=== PATIENT | male | born 1985 | race Two or more races ===

== ENCOUNTER → 2024-04-08 | Day surgery (SDC) | payer BC ==
[2024-04-02 14:44] LABS: Urine Bacteria None Seen /hpf (None Seen)
[2024-04-02 15:07] LABS: Urine Blood Negative /uL (Negative); Urine Clarity Clear (Clear); Urine Color Colorless (Yellow); Urine Protein, UAD Negative (Negative); Urine Specific Gravity 1.005 (1.001-1.035); Urine Urobilinogen Normal (Negative); Urine WBC <1 /hpf (0 - 3); Urine pH 6.5 (5.0-9.0)
[2024-04-02 15:10] LABS: Basophils # (auto) 0 10 ^3/uL (0-0.2); Basophils % (auto) 0.8 % (0.0-2.0); Eosinophils # (auto) 0.2 10 ^3/uL (0-0.8); Eosinophils % (auto) 3.1 % (0.0-7.0); Hematocrit 51.1 % (41.0-53.0); Hemoglobin 17.3 g/dL (13.5-17.5); Lymphocytes # (auto) 1.3 10 ^3/uL (0.4-5.4); Lymphocytes % (auto) 24.3 % (10.0-50.0); Mean Corpuscular Hemoglobin 31.2 pg (28.0-32.0); Mean Corpuscular Hgb Conc. 33.9 g/dL (32.0-36.0); Monocytes # (auto) 0.5 10 ^3/uL (0-1.3); Monocytes % (auto) 8.9 % (0.0-12.0); Neutrophils # (auto) 3.3 10 ^3/uL (1.6-8.6); Neutrophils % (auto) 62.9 % (37.0-80.0); Nucleated Red Blood Cells % 0.1 %; Red Blood Cells 5.55 10^6/uL (4.5-5.90); Red Cell Distribution Width 13.5 % (11.8-14.3); White Blood Cell 5.2 10^3/uL (4.4-10.8)
[2024-04-02 15:23] LABS: INR 1.08 (0.9-1.15); Partial Thromboplastin Time 28.1 SEC (24.5-34.5); Prothrombin Time 11.4 sec (9.3-11.8)
[2024-04-02 15:40] LABS: Alanine Aminotransferase 19 U/L (7-40); Albumin 4.4 g/dL (3.2-4.8); Alkaline Phosphatase 65 U/L (46-116); Anion Gap 6 (5-15); Aspartate Aminotransferase 10 U/L (13-40); BUN/Creatinine Ratio 7.1 (10.0-20.0); Blood Urea Nitrogen 7 mg/dL (9-23); Calcium 9.8 mg/dL (8.7-10.4); Carbon Dioxide 30 mmol/L (20-30); Chloride 105 mmol/L (98-107); Glucose 85 mg/dL (74-106); Potassium 4.4 mmol/L (3.5-5.1); Sodium 141 mmol/L (136-145)
[2024-04-02 15:41] LABS: Bilirubin, Total 1.6 mg/dL (0.2-1.0); Total Protein 6.7 g/dL (5.7-8.2)
[~2024-04-08] VITALS: Ht 193 cm; Wt 83.9 kg
[~2024-04-08] MED LIST: DOCU-94 PO; DexAMETHasone SOD PHOS 10MG/1ML VIAL INJ ONE; HYDROmorphone HCL 2 MG/ML VL/or syr IV PRN; MIDAZOLAM HCL 2MG/2ML 2ml VIAL (1mg/ml) ONE; OMEP20TA PO; ONDANSETRON HCL 4 MG/2 ML VIAL IV ONE; ONDANSETRON HCL 4 MG/2 ML VIAL ONE; PROPOFOL 10 MG/ML 20 ML IV ONE; SUCR1TAB31 OR; TRAM50TA2 PO; fentaNYL CITRATE 100 MCG/2 ML VL ONE
[2024-04-08 10:45] VITALS: TEMP 97.9
[2024-04-08] MEDS: ceFAZolin 2 GM/D5W50ml 50 ML IV ONE (12:47)
[2024-04-08 13:29] VITALS: PULSE 69; RESP 12; O2SAT 95
[2024-04-08 14:30] VITALS: BP 138/81; PULSE 65; RESP 12; O2SAT 100
== END | disposition home or self-care (01) ==
LOC: SUR 08:45
PROVIDERS: ATTEND Urology
DX: N20.0 Calculus of kidney (principal); Z79.01 Long term (current) use of anticoagulants; Z79.899 Other long term (current) drug therapy; Z87.11 Personal history of peptic ulcer disease; Z98.890 Other specified postprocedural states
CPT/HCPCS: 36415; 50590; 80053; 81001; 85025; 85610; 85730; 87086; J0690; J1100; J2250; J2405; J2704; J3010

== ENCOUNTER → 2024-12-18 | Day surgery (SDC) | payer BC ==
[2024-12-17 14:54] LABS: Urine Bacteria None Seen /hpf (None Seen)
[2024-12-17 15:15] LABS: Urine Blood Negative /uL (Negative); Urine Clarity Clear (Clear); Urine Color Colorless (Yellow); Urine Protein, UAD Negative (Negative); Urine Specific Gravity 1.003 (1.001-1.035); Urine Squamous Epithelial Cell None Seen /hpf (<5); Urine Urobilinogen Normal (Negative)
[2024-12-17 15:18] LABS: Basophils # (auto) 0 10 ^3/uL (0-0.2); Basophils % (auto) 0.8 % (0.0-2.0); Eosinophils # (auto) 0.1 10 ^3/uL (0-0.8); Hematocrit 55.1 % (41.0-53.0); Hemoglobin 18.7 g/dL (13.5-17.5); Lymphocytes # (auto) 1.6 10 ^3/uL (0.4-5.4); Lymphocytes % (auto) 27.7 % (10.0-50.0); Mean Corpuscular Hemoglobin 31.4 pg (28.0-32.0); Mean Corpuscular Volume 92.5 fL (80.0-100.0); Monocytes # (auto) 0.5 10 ^3/uL (0-1.3); Neutrophils # (auto) 3.6 10 ^3/uL (1.6-8.6); Neutrophils % (auto) 62.5 % (37.0-80.0); Nucleated Red Blood Cells % 0.2 %; Platelet Count (auto) 205 10^3/uL (140-450); Red Blood Cells 5.96 10^6/uL (4.5-5.90); Red Cell Distribution Width 13.1 % (11.8-14.3); White Blood Cell 5.8 10^3/uL (4.4-10.8)
[2024-12-17 15:37] LABS: INR 1.05 (0.9-1.15); Prothrombin Time 11.1 sec (9.3-11.8)
[2024-12-17 16:21] LABS: Alanine Aminotransferase 29 U/L (7-40); Alkaline Phosphatase 59 U/L (46-116); Anion Gap 7 (5-15); Aspartate Aminotransferase 20 U/L (13-40); BUN/Creatinine Ratio 9.2 (10.0-20.0); Blood Urea Nitrogen 11 mg/dL (9-23); Calcium 10.4 mg/dL (8.7-10.4); Carbon Dioxide 30 mmol/L (20-31); Chloride 102 mmol/L (98-107); Glucose 90 mg/dL (74-106); Potassium 4.7 mmol/L (3.5-5.1); Sodium 139 mmol/L (136-145); Total Protein 7.4 g/dL (5.7-8.2)
[2024-12-17 16:22] LABS: Albumin 5.1 g/dL (3.2-4.8); Bilirubin, Total 2.6 mg/dL (0.2-1.0)
[~2024-12-18] VITALS: Ht 193 cm; Wt 86.2 kg
[~2024-12-18] MED LIST changes: +ACET-1881 PO; -DOCU-94 PO; +FAMO20TA10 PO; +GLYCOPYRROLATE 0.2 MG/ML 1ML VIAL ONE; +HYDROmorphone HCL 2 MG/ML VL/or syr ONE; +IOHEXOL 180 MG/ML 20ML VIAL IJ ONE; +IOHEXOL 300 MG/ML 100ML BOTTLE IJ ONE; +KETOROLAC TROMETH 30 MG/ML 1ML VIAL ONE; +LIDOCAINE 2% (LOCAL ANESTH.) PF 5ml SDV ONE; -OMEP20TA PO; +SUCCINYLCHOLINE CHLORIDE 20 MG/ML 10ML VIAL IV ONE; -SUCR1TAB31 OR; -TRAM50TA2 PO; +ePHEDrine SULFATE 50 MG/ML AMP ONE
[2024-12-18] MEDS: CIPROFLOXACIN 400MG/200ML 200 ML IV ONE (08:01)
[2024-12-18 08:42] VITALS: PULSE 81; RESP 8; TEMP 97.2; O2SAT 97
--- NOTE | 2024-12-18 09:09 | DVHNC2 ---
Procedure - OPERATIVE REPORT Pre-op. Diagnosis: Renal Stone Post-op. Diagnosis: Same as pre-op diagnosis Operation: Extracorporeal Shockwave Lithotripsy Anesthesia: General Indications: Patient was found to have symptomatic Urolithiasis. Patient is here to undergo ESWL therapy. Informed Consent: The procedure was explained to the patient. It's risks include but not limited to infection, bleeding, and damage to the kidney. Patient fully understood and signed the consent. Other options such as watchful waiting, Ureteroscopy, Percutaneous surgery and open surgery were also discussed. Details of Procedure: Under satisfactory anesthesia, the patient was positioned on the lithotripsy table. Using fluoroscopy the stone was localized. Starting at low energy levels, shockwave treatment was commenced. The energy level was gradually increased and stone was fragmented. Once the treatment was completed, patient was then taken off the lithotripsy table and sent to recovery room in stable condition. Specimens: None Complications: None Findings: Stone Laterality: right Stone Location: upper pole, 7 mm stone Shocks Delivered: [address] [employer] settin Fragmentation Quality: Well Notes: Visit Code: Procedure Codes: 29121 FRAGMENTING OF KIDNEY STONE. SAEED MAURER MD Dec 18, 2024 09:09
--- NOTE | 2024-12-18 09:10 | DVHDS2 ---
New Physician D'charge PN Admitting Diagnosis Admitting Diagnosis Right nephrolithiasis Discharge Diagnosis Same Operations or Procedures Right extracorporeal shockwave lithotripsy Reason(s) For Hospitalization Surgery Treatment Plan Discharge Condition of Discharge Good Disposition Home Discharge Instructions Diet: Regular Activity: Light activity Medications: Given Follow Up Care Follow Up/Referral: Two weeks with [facility] Discharge Statement: "Patient was advised to return to the ER or call 911 if any headaches, dizziness, shortness of breath, chest pain, abdominal pain, bleeding, fevers, or worsening of medical condition. Patient was counseled about treatment plan, medications, possible side effects, patientverbalized understanding. All questions were answered to the best of my ability. This discharge took greater then 30 minutes in planning, reviewing documentation, counseling the patient, and discussing with other team members." SAEED MAURER MD Dec 18, 2024 09:10
[2024-12-18 09:32] VITALS: BP 145/96; PULSE 80; RESP 14; O2SAT 98
== END | disposition home or self-care (01) ==
LOC: SUR 06:03
PROVIDERS: ATTEND Urology
DX: N20.0 Calculus of kidney (principal); M79.89 Other specified soft tissue disorders; K21.9 Gastro-esophageal reflux disease without esophagitis
CPT/HCPCS: 36415; 50590; 80053; 81001; 85025; 85610; 85730; 87086; J0330; J0744; J1100; J1171; J1885; J2003; J2250; J2405; J2704; J3010; Q9965